=== PATIENT | female | born 1995 | race Caucasian/White ===

== ENCOUNTER 2017-08-01 13:35 | Emergency (ER) | payer BC ==
[2017-08-01 14:32] VITALS: BP 111/57
--- NOTE | 2017-08-01 15:27 | UC ---
Abdominal Pain Female HPI - HPI Summary HPI Summary: patient has ahd a sweek fo some stomach upset and acid reflux at night. she feels better when she eats. did have a migraine on wednesday, but that has resolved. she has no pain right now - History of Current Complaint Chief Complaint: UCAbdominalPain Stated Complaint: ABDOMINAL PAIN Time Seen by Provider: 08/01/17 15:01 Hx Obtained From: Patient Hx Last Menstrual Period: 07/04/17 Onset/Duration: Sudden Onset, Lasting Days Timing: Constant Severity Initially: Mild Severity Currently: None Location: Epigastric Radiates: No Aggravating Factor(s): Nothing Alleviating Factor(s): Other: - eating Associated Signs and Symptoms: Positive: Negative Allergies/Adverse Reactions: Allergies Allergy/AdvReac Type Severity Reaction Status Date / Time No Known Allergies Allergy Verified 08/01/17 14:26 Home Medications: Home Medications Migraine Medication PRN 08/01/17 [History] PMH/Surg Hx/FS Hx/Imm Hx Previously Healthy: Yes - Surgical History Surgical History: None - Family History Known Family History: Negative: Hypertension - Social History Alcohol Use: None Substance Use Type: None Smoking Status (MU): Never Smoked Tobacco - Immunization History Vaccination Up to Date: Yes Review of Systems Constitutional: Negative Skin: Negative Eyes: Negative ENT: Negative Respiratory: Negative Cardiovascular: Negative Gastrointestinal: Abdominal Pain Genitourinary: Negative Motor: Negative Neurovascular: Negative Musculoskeletal: Negative Neurological: Negative Psychological: Negative Is Patient Immunocompromised?: No All Other Systems Reviewed And Are Negative: Yes Physical Exam Triage Information Reviewed: Yes Appearance: Well-Appearing, No Pain Distress, Well-Nourished Vital Signs: Initial Vital Signs Temp 98.4 F 08/01/17 14:28 Pulse 94 08/01/17 14:28 Resp 16 08/01/17 14:28 BP 111/57 08/01/17 14:28 Vital Signs Reviewed: Yes Eye Exam: Normal ENT Exam: Normal Dental Exam: Normal Neck exam: Normal Neck: Positive: Supple, Nontender, No Lymphadenopathy Respiratory Exam: Normal Respiratory: Positive: Chest non-tender, Lungs clear, Normal breath sounds Cardiovascular Exam: Normal Cardiovascular: Positive: RRR, No Murmur, Pulses Normal Abdominal Exam: Normal Abdomen Description: Positive: Nontender, No Organomegaly, Soft, CVA Tenderness (R) - neg, CVA Tenderness (L) - nerg Bowel Sounds: Positive: Hyperactive Musculoskeletal Exam: Normal Neurological Exam: Normal Psychological Exam: Normal Skin Exam: Normal Abd Pain Female Course/Dx - Course Course Of Treatment: hx obtained, exam performed ,meds reviewed, treated for nasuea and educated on acid reflux - Differential Dx/Diagnosis Differential Diagnosis: Appendicitis, Irritable Bowel Syndrome, Urinary Tract Infection Provider Diagnoses: acid reflux, nausea Discharge - Discharge Plan Condition: Stable Disposition: HOME Prescriptions: Ondansetron ODT TAB* [Zofran 4 MG Odt TAB*] 4 mg PO Q8H PRN #12 tab.odt PRN Reason: Nausea Patient Education Materials: Gastroesophageal Reflux Disease (ED) Referrals: Non Staff,Doctor [Primary Care Provider] - Additional Instructions: 1. take the medication prescribed for any nausea or stomach pain. 2. if heartburn occurs taking 2 tums will help witht he temporary heartburn, if the symtpoms persist follow up with your doctor.
== END 2017-08-01 15:31 | disposition home or self-care (01) ==
LOC: UCCORT 13:35
DX: K21.9 Gastro-esophageal reflux disease without esophagitis (principal); R11.0 Nausea
CPT/HCPCS: 99202; G0463

== ENCOUNTER 2017-10-02 08:51 | Emergency (ER) | payer BC ==
[2017-10-02 09:38] VITALS: BP 117/75
--- NOTE | 2017-10-02 09:51 | UC ---
Skin Complaint HPI - HPI Summary HPI Summary: Wart present for over a year, has tried wart bandage with no relief., non painful - History of Current Complaint Chief Complaint: UCSkin Time Seen by Provider: 10/02/17 09:25 Stated Complaint: SKIN CONCERN Hx Obtained From: Patient Hx Last Menstrual Period: 09/12/17 ?: No Onset/Duration: Sudden Onset, Lasting Weeks - iver a year Skin Exposure Onset/Duration: Weeks Ago Timing: Constant Onset Severity: Mild Current Severity: None Pain Intensity: 0 Location: Discrete Aggravating Factor(s): Nothing Alleviating Factor(s): Nothing Associated Signs & Symptoms: Positive: Negative - Allergy/Home Medications Allergies/Adverse Reactions: Allergies Allergy/AdvReac Type Severity Reaction Status Date / Time No Known Allergies Allergy Verified 10/02/17 09:35 Home Medications: Home Medications NK [No Home Medications Reported] 10/02/17 [History Confirmed 10/02/17] Review of Systems Constitutional: Negative Skin: Other - wart Eyes: Negative ENT: Negative Respiratory: Negative Cardiovascular: Negative Gastrointestinal: Negative Genitourinary: Negative Motor: Negative Neurovascular: Negative Musculoskeletal: Negative Neurological: Negative Psychological: Negative Is Patient Immunocompromised?: No All Other Systems Reviewed And Are Negative: Yes PMH/Surg Hx/FS Hx/Imm Hx Previously Healthy: Yes - Surgical History Surgical History: None - Family History Known Family History: Negative: Hypertension - Social History Alcohol Use: Rare Substance Use Type: None Smoking Status (MU): Never Smoked Tobacco - Immunization History Vaccination Up to Date: Yes Physical Exam Triage Information Reviewed: Yes Appearance: Well-Appearing, No Pain Distress, Well-Nourished Vital Signs: Initial Vital Signs Temp 98.6 F 10/02/17 09:30 Pulse 78 10/02/17 09:30 Resp 14 10/02/17 09:30 BP 117/75 10/02/17 09:30 Pulse Ox 100 10/02/17 09:30 Vital Signs Reviewed: Yes Eye Exam: Normal ENT Exam: Normal Dental Exam: Normal Neck exam: Normal Respiratory Exam: Normal Cardiovascular Exam: Normal Abdominal Exam: Normal Bowel Sounds: Positive: Present Musculoskeletal Exam: Normal Neurological Exam: Normal Psychological Exam: Normal Skin: Positive: Other - wart Course/Dx - Course Course Of Treatment: hx obtained, exam performed ,meds reviewed, educated on OTC methods, if it peresits recommend follow up with dermatology - Differential Diagnoses - Skin Complaint Differential Diagnoses: Eczema, Other - wart - Diagnoses Provider Diagnoses: common wart Discharge - Discharge Plan Condition: Stable Disposition: HOME Patient Education Materials: Common Wart (ED) Referrals: Non Staff,Doctor [Primary Care Provider] - Timoteo SALAZAR,Elder Fritz [Physician Product Test Specialist] - Additional Instructions: 1. use the otc treatment, if not affective follow up with dermatology
== END 2017-10-02 10:01 | disposition home or self-care (01) ==
LOC: UCCORT 08:51
DX: L30.9 Dermatitis, unspecified (principal); B07.9 Viral wart, unspecified
CPT/HCPCS: 99211; G0463

== ENCOUNTER 2017-10-07 07:59 | Emergency (ER) | payer BC ==
[2017-10-07 08:52] VITALS: BP 123/82
--- NOTE | 2017-10-07 09:20 | UC ---
Respiratory Complaint HPI - HPI Summary HPI Summary: 22 yo female with sore throat/cough and congestion x 2-3 days feverish chills mild myalgias no n/v/d - History of Current Complaint Chief Complaint: UCRespiratory Stated Complaint: COUGH,SORE THROAT,HEADACHE Time Seen by Provider: 10/07/17 09:13 Hx Obtained From: Patient Hx Last Menstrual Period: 10/05/17 Onset/Duration: Gradual Onset, Lasting Days Timing: Constant Severity Initially: Moderate Severity Currently: Moderate Pain Intensity: 6 Pain Scale Used: 0-10 Numeric Character: Cough: Nonproductive Aggravating Factors: Nothing Alleviating Factors: Nothing Associated Signs And Symptoms: Positive: Fever, Chills, Nasal Congestion, Hoarseness - Allergies/Home Medications Allergies/Adverse Reactions: Allergies Allergy/AdvReac Type Severity Reaction Status Date / Time No Known Allergies Allergy Verified 10/07/17 08:49 PMH/Surg Hx/FS Hx/Imm Hx Previously Healthy: Yes Respiratory History: Asthma - Surgical History Surgical History: None - Family History Known Family History: Negative: Cardiac Disease, Hypertension, Diabetes - Social History Alcohol Use: Rare Substance Use Type: None Smoking Status (MU): Never Smoked Tobacco - Immunization History Vaccination Up to Date: Yes Review of Systems Constitutional: Fever, Chills Skin: Negative Eyes: Negative ENT: Sore Throat, Nasal Discharge, Sinus Congestion Respiratory: Cough Cardiovascular: Negative Gastrointestinal: Negative Genitourinary: Negative Motor: Negative Neurovascular: Negative Musculoskeletal: Arthralgia, Myalgia Neurological: Negative Psychological: Negative Is Patient Immunocompromised?: No All Other Systems Reviewed And Are Negative: Yes Physical Exam Triage Information Reviewed: Yes Appearance: Well-Appearing, No Pain Distress, Well-Nourished Vital Signs: Initial Vital Signs Temp 98.5 F 10/07/17 08:45 Pulse 98 10/07/17 08:45 Resp 16 10/07/17 08:45 BP 123/82 10/07/17 08:45 Pulse Ox 98 10/07/17 08:45 Vital Signs Reviewed: Yes Eyes: Positive: Conjunctiva Clear ENT: Positive: Pharynx normal, Pharyngeal erythema, Nasal congestion, Nasal drainage, Tonsillar swelling, Sinus tenderness. Negative: TMs normal, Uvula midline Neck: Positive: Supple, Nontender Respiratory: Positive: Lungs clear, Normal breath sounds, No respiratory distress, No accessory muscle use Cardiovascular: Positive: RRR, No Murmur Neurological: Positive: Alert Psychological Exam: Normal Skin Exam: Normal UC Diagnostic Evaluation - Laboratory O2 Sat by Pulse Oximetry: 98 - normal/not hypoxic Respiratory Course/Dx - Course Course Of Treatment: INFLUENZA A (+). STREP (-) - Differential Dx/Diagnosis Provider Diagnoses: INFLUENZA Discharge - Discharge Plan Condition: Stable Disposition: HOME Patient Education Materials: Influenza (ED) Forms: *School Release, *Work Release Referrals: No Primary Care Phys,NOPCP [Primary Care Provider] - Additional Instructions: RECHECK IN 4-5 DAYS IF NOT BETTER RECHECK FOR NEW OR WORSENING SYMPTOMS
== END 2017-10-07 09:58 | disposition home or self-care (01) ==
LOC: UCCORT 07:59
DX: J11.1 Influenza due to unidentified influenza virus with other respiratory manifestations (principal)
CPT/HCPCS: 87502; 87651; 99212; G0463

== ENCOUNTER 2018-04-02 08:46 | Emergency (ER) | payer BC ==
[2018-04-02 09:05] VITALS: BP 107/64
--- NOTE | 2018-04-02 09:16 | UC ---
Throat Pain/Nasal Gabe HPI - HPI Summary HPI Summary: sore throat for 3 days with fever - History of Current Complaint Chief Complaint: UCGeneralIllness Stated Complaint: SORE THROAT Time Seen by Provider: 04/02/18 09:07 Hx Obtained From: Patient Hx Last Menstrual Period: 03/18/18 ?: No Onset/Duration: Sudden Onset, Lasting Days - 3 Severity: Moderate Pain Intensity: 7 Pain Scale Used: 0-10 Numeric Cough: None Associated Signs & Symptoms: Positive: Negative - Allergies/Home Medications Allergies/Adverse Reactions: Allergies Allergy/AdvReac Type Severity Reaction Status Date / Time No Known Allergies Allergy Verified 04/02/18 08:56 Home Medications: Home Medications B2/Magnesium Cit,Oxid/Feverfew [Migrelief Caplet] 1 tab PO DAILY PRN 04/02/18 [ History Confirmed 04/02/18] Cholecalciferol (Vitamin D3) [Vitamin D3] 1,000 unit PO DAILY 04/02/18 [History Confirmed 04/02/18] Elderberry Fruit and Flower [Black Elderberry 575 mg Cap] 1 each PO DAILY [History Confirmed 04/02/18] Naproxen TAB* [Naprosyn 250 mg TAB*] 500 mg PO Q8H PRN 04/02/18 [History Confirmed 04/02/18] PMH/Surg Hx/FS Hx/Imm Hx Previously Healthy: Yes - Surgical History Surgical History: None - Family History Known Family History: Negative: Cardiac Disease, Hypertension, Diabetes - Social History Occupation: Employed Full-time, Student Lives: With Family Alcohol Use: Rare Substance Use Type: None Smoking Status (MU): Former Smoker - Immunization History Vaccination Up to Date: Yes Review of Systems Constitutional: Fever, Chills, Fatigue Skin: Negative Eyes: Negative ENT: Sore Throat Respiratory: Negative Cardiovascular: Negative Gastrointestinal: Negative Genitourinary: Negative Motor: Negative Neurovascular: Negative Musculoskeletal: Negative Neurological: Headache Psychological: Negative Is Patient Immunocompromised?: No All Other Systems Reviewed And Are Negative: Yes Physical Exam Triage Information Reviewed: Yes Appearance: Well-Nourished, Ill-Appearing, Pain Distress Vital Signs: Initial Vital Signs Temp 100.8 F 04/02/18 08:55 Pulse 94 04/02/18 08:55 Resp 16 04/02/18 08:55 BP 107/64 04/02/18 08:55 Pulse Ox 100 04/02/18 08:55 Vital Signs Reviewed: Yes Eye Exam: Normal Eyes: Positive: Conjunctiva Clear ENT Exam: Normal ENT: Positive: Normal ENT inspection, Hearing grossly normal, Pharyngeal erythema, TMs normal, Tonsillar swelling, Uvula midline. Negative: Nasal congestion, Tonsillar exudate, Trismus, Muffled voice, Hoarse voice, Dental tenderness, Sinus tenderness Dental Exam: Normal Neck exam: Normal Neck: Positive: Supple, Nontender Respiratory Exam: Normal Respiratory: Positive: Chest non-tender, Lungs clear, Normal breath sounds, No respiratory distress, No accessory muscle use Cardiovascular Exam: Normal Cardiovascular: Positive: RRR, No Murmur, Pulses Normal, Brisk Capillary Refill Abdominal Exam: Normal Abdomen Description: Positive: Nontender, No Organomegaly, Soft Bowel Sounds: Positive: Present Musculoskeletal Exam: Normal Musculoskeletal: Positive: Strength Intact, ROM Intact, No Edema Neurological Exam: Normal Neurological: Positive: Alert, Muscle Tone Normal Psychological Exam: Normal Skin Exam: Normal Diagnostics - Laboratory Diagnostic Studies Completed/Ordered: RST (-) Throat Pain/Nasal Course/Dx - Course Assessment/Plan: lab studies tylenolo, ibuprofen increase fluids, rest follow with pcp prn - Differential Dx/Diagnosis Provider Diagnoses: viral pharyngitis Discharge - Sign-Out/Discharge Documenting (check all that apply): Patient Departure - Discharge Plan Condition: Stable Disposition: HOME Patient Education Materials: Pharyngitis (ED), Viral Syndrome (ED) Referrals: GRAZYNA Mendoza [Medical Doctor] - If Needed Additional Instructions: Follow with your primary care provider as needed - Billing Disposition and Condition Condition: STABLE Disposition: Home Attestation Statement User Type: Provider - I was available for consult. This patient was seen by the CH[facility]. The patient was not presented to, seen by, or examined by me. -Mackenzie
[2018-04-02 14:37] LABS: Hematocrit 36 % (35-47); Hemoglobin 11.9 g/dl (12.0-16.0); Mean Corpuscular HGB Conc 33 g/dl (31-36); Mean Corpuscular Hemoglobin 30 pg (27-31); Mean Corpuscular Volume 90 fL (80-97); Platelet Count 223 10^3/ul (150-450); Red Blood Count 4.01 10^6/ul (4.00-5.40); Red Cell Distribution Width 13 % (10.5-15); White Blood Count 8.5 10^3/ul (3.5-10.8)
[2018-04-02 15:13] LABS: ABS Basophils 0 10^3/ul (0-0.2); ABS Eosinophils 0 10^3/ul (0-0.6); ABS Lymphocytes 0.9 10^3/ul (1.0-4.8); ABS Monocytes 1.2 10^3/ul (0-0.8); ABS Neutrophils 6.3 10^3/ul (1.5-7.7); ABS Nucleated RBC 0 10^3/ul; Eosinophil % 0 % (0-6); Lymphocyte % 10.6 % (25-47); Nucleated Red Blood Cells % 0
--- NOTE | 2018-04-03 08:27 | UC ---
- Progress Note Progress Note: monospot neg CBC reviewed - non concerning - path comment pending no change Mackenzie 04/03/2018 8:26am Discharge - Sign-Out/Discharge Documenting (check all that apply): Patient Departure - Discharge Plan Condition: Stable Disposition: HOME Patient Education Materials: Pharyngitis (ED), Viral Syndrome (ED) Referrals: GRAZYNA Mendoza [Medical Doctor] - If Needed Additional Instructions: Follow with your primary care provider as needed - Billing Disposition and Condition Condition: STABLE Disposition: Home
== END 2018-04-02 10:14 | disposition home or self-care (01) ==
LOC: UCCORT 08:46
DX: J02.8 Acute pharyngitis due to other specified organisms (principal)
CPT/HCPCS: 36415; 85025; 85060; 86308; 86664; 86665; 87651; 99211; G0463

== ENCOUNTER 2018-08-15 08:22 | Emergency (ER) | payer BC ==
[2018-08-15 08:37] VITALS: BP 118/67
--- NOTE | 2018-08-15 09:10 | ED ---
GI/ HPI - HPI Summary HPI Summary: 22 yr old with URI symptoms that started on August 11, and have still persisted. She began to get NVD overnight. She has vomited, and also had diarrhea twice this morning. She presently has no abdominal pain. LMP 3 weeks ago. - History of Current Complaint Chief Complaint: UCGI Time Seen by Provider: 08/15/18 08:42 Stated Complaint: NAUSEA Hx Last Menstrual Period: 07/17/18 Pain Intensity: 2 - Allergy/Home Medications Allergies/Adverse Reactions: Allergies Allergy/AdvReac Type Severity Reaction Status Date / Time lactose Allergy GI Upset Verified 08/15/18 08:34 Home Medications: Home Medications Dm/Pseudoephed/Acetaminophen [Day-Time Multi-Symptom Co] 1 cap PO Q6H 08/15/18 [ History Confirmed 08/15/18] PMH/Surg Hx/FS Hx/Imm Hx Respiratory History: Reports: Hx Asthma - Surgical History Surgery Procedure, Year, and Place: wisdom teeth Infectious Disease History: No Infectious Disease History: Denies: Traveled Outside the [place] in Last 30 Days - Family History Known Family History: Negative: Cardiac Disease, Hypertension, Diabetes - Social History Alcohol Use: Weekly Substance Use Type: Reports: None Smoking Status (MU): Never Smoked Tobacco Review of Systems Constitutional: Negative Positive: Nasal Discharge Positive: Vomiting, Diarrhea, Nausea All Other Systems Reviewed And Are Negative: Yes Physical Exam Triage Information Reviewed: Yes Vital Signs On Initial Exam: Initial Vitals Temp Pulse Resp BP Pulse Ox 98.7 F 112 16 118/67 99 08/15/18 08:32 08/15/18 08:32 08/15/18 08:32 08/15/18 08:32 08/15/18 08:32 Vital Signs Reviewed: Yes Appearance: Positive: Well-Appearing, No Pain Distress Skin: Positive: Warm, Skin Color Reflects Adequate Perfusion Head/Face: Positive: Normal Head/Face Inspection Eyes: Positive: EOMI Neck: Positive: Nontender Respiratory/Lung Sounds: Positive: Clear to Auscultation, Breath Sounds Present Cardiovascular: Positive: RRR. Negative: Murmur Abdomen Description: Positive: Nontender Musculoskeletal: Positive: Strength/ROM Intact Neurological: Positive: Sensory/Motor Intact, Alert, Oriented to Person Place, Time, CN Intact II-III, Normal Gait, Speech Normal Psychiatric: Positive: Normal - Cathi Coma Scale Best Eye Response: 4 - Spontaneous Best Motor Response: 6 - Obeys Commands Best Verbal Response: 5 - Oriented Coma Scale Total: 15 Diagnostics - Vital Signs Vital Signs Temp Pulse Resp BP Pulse Ox 08/15/18 08:32 98.7 F 112 16 118/67 99 - Laboratory Lab Statement: Any lab studies that have been ordered have been reviewed, and results considered in the medical decision making process. GIGU Course/Dx - Course Course Of Treatment: 22 yr old female with NVD, and also URI symptoms. HCG neg. Clear liquids. - Diagnoses Provider Diagnoses: Gastroenteritis Discharge - Sign-Out/Discharge Documenting (check all that apply): Patient Departure All imaging exams completed and their final reports reviewed: No Studies - Discharge Plan Condition: Good Disposition: HOME Patient Education Materials: Gastroenteritis (ED) Referrals: No Primary Care Phys,NOPCP [Primary Care Provider] - [facility] [place]] - 2 Days - Billing Disposition and Condition Condition: GOOD Disposition: Home
== END 2018-08-15 09:20 | disposition home or self-care (01) ==
LOC: UCCORT 08:22
DX: K52.9 Noninfective gastroenteritis and colitis, unspecified (principal)
CPT/HCPCS: 84702; 99211; G0463

== ENCOUNTER 2019-06-26 11:59 | Emergency (ER) | payer BC ==
[2019-06-26 14:18] VITALS: BP 115/75
--- NOTE | 2019-06-26 14:24 | UC ---
Abdominal Pain Female HPI - HPI Summary HPI Summary: Patient is a 23-year-old female presenting with diarrhea 5 days. States she lives in [place] last week for her honeymoon and the diarrhea began on 06/22 the night before she left home. States it began with fever, nausea, diarrhea, and chills. States she saw the nurse in [place] who told her to take Tylenol for her fever and Pepto-Bismol for her upset stomach. Patient states of the symptoms subsided but she still has some loose stools into today. Started with 8 episodes a day of diarrhea but she has only had 2 this today. Denies blood in the stool. Denies mucous in stool. Denies changes in urination. Denies abdominal pain. Denies nausea and vomiting today. Denies fever today. Patient states she is eating and drinking normally. Patient states she "just wants to make sure she is okay." - History of Current Complaint Chief Complaint: UCGI Stated Complaint: UPSET STOMACH/FEVER Hx Obtained From: Patient Hx Last Menstrual Period: 06/25/19 Onset/Duration: Sudden Onset, Lasting Days Severity Initially: Severe Severity Currently: Mild Pain Intensity: 0 Allergies/Adverse Reactions: Allergies Allergy/AdvReac Type Severity Reaction Status Date / Time lactose Allergy GI Upset Verified 06/26/19 14:02 Home Medications: Home Medications Acetaminophen [Acetaminophen Extra Strength] 1,000 mg PO PRN 06/26/19 [History] Bismuth Subsalicylate [Pepto-Bismol Max Strength] 1 liq PO PRN 06/26/19 [History ] Oral Contraceptive 1 tab PO DAILY 06/26/19 [History] PMH/Surg Hx/FS Hx/Imm Hx Previously Healthy: Yes - Surgical History Surgical History: Yes Surgery Procedure, Year, and Place: wisdom teeth - Family History Known Family History: Negative: Cardiac Disease, Hypertension, Diabetes - Social History Alcohol Use: Occasionally Substance Use Type: None Smoking Status (MU): Never Smoked Tobacco - Immunization History Vaccination Up to Date: Yes Review of Systems All Other Systems Reviewed And Are Negative: Yes Constitutional: Positive: Fever, Chills Respiratory: Positive: Negative. Negative: Shortness Of Breath, Cough Cardiovascular: Positive: Negative. Negative: Palpitations, Chest Pain Gastrointestinal: Positive: Diarrhea, Nausea. Negative: Abdominal Pain, Vomiting Genitourinary: Positive: Negative Musculoskeletal: Positive: Negative Neurological: Positive: Negative Physical Exam Triage Information Reviewed: Yes Appearance: Well-Appearing, No Pain Distress, Well-Nourished Vital Signs: Initial Vital Signs Temp 98.9 F 06/26/19 14:05 Pulse 79 06/26/19 14:05 Resp 18 06/26/19 14:05 BP 115/75 06/26/19 14:05 Pulse Ox 99 06/26/19 14:05 Vital Signs Reviewed: Yes Eyes: Positive: Conjunctiva Clear ENT: Positive: Hearing grossly normal Neck: Positive: Supple Respiratory Exam: Normal Respiratory: Positive: Lungs clear, Normal breath sounds, No respiratory distress. Negative: Crackles, Rhonchi, Stridor, Wheezing Cardiovascular Exam: Normal Cardiovascular: Positive: RRR Abdominal Exam: Normal Abdomen Description: Positive: Nontender, Soft. Negative: CVA Tenderness (R), CVA Tenderness (L), Distended, Guarding, McBurney's Point Tenderness Bowel Sounds: Positive: Present, Hypoactive Neurological: Positive: Alert Psychological: Positive: Age Appropriate Behavior Skin Exam: Normal Abd Pain Female Course/Dx - Course Course Of Treatment: Pt VS and PE findings normal. No concern for disease or infection in [place] other than global measles outbreak per CDC. Educated patient on traveler's diarrhea. Instructed her to discontinue Pepto-Bismol use. Instructed her to drink plenty of fluids and increase her fiber intake. Instructed her to continue with bland diet. Instructed her to follow up with physician referral if her symptoms persist. Instructed her to return or go to the ED if symptoms worsen. Patient voiced understanding and agreed with the treatment plan. - Differential Dx/Diagnosis Provider Diagnosis: Travelers' diarrhea Discharge ED - Sign-Out/Discharge Documenting (check all that apply): Patient Departure All imaging exams completed and their final reports reviewed: No Studies - Discharge Plan Condition: Stable Disposition: HOME Patient Education Materials: Traveler's Diarrhea (ED) Referrals: [facility] [place] [facility] [Outside] - If Needed Additional Instructions: As discussed, your symptoms are consistent with traveler's diarrhea. This should resolve on its own within the next couple days. Make sure you drink plenty of fluids and increase your fiber intake. Follow up with the physician referral if your symptoms persist. Go to the ED if you experience fever higher than 102, nausea and vomiting, blood in the stool, or severe abdominal pain. - Billing Disposition and Condition Condition: STABLE Disposition: Home
== END 2019-06-26 14:44 | disposition home or self-care (01) ==
LOC: UCCORT 11:59
DX: R19.7 Diarrhea, unspecified (principal); Z91.011 Allergy to milk products
CPT/HCPCS: 99211; G0463

== ENCOUNTER 2019-10-12 14:47 | Emergency (ER) | payer BC ==
[2019-10-12 15:33] VITALS: BP 98/68
--- NOTE | 2019-10-12 15:40 | UC ---
Skin Complaint HPI - HPI Summary HPI Summary: 24-year-old college female who started experiencing left upper eyelid redness and swelling yesterday which has progressively worsened today. She denies any visual changes. She denies any fever or chills. - History of Current Complaint Chief Complaint: UCEye Time Seen by Provider: 10/12/19 15:28 Stated Complaint: LEFT EYE COMPLAINT Hx Obtained From: Patient Hx Last Menstrual Period: 09/30/19 ?: No Onset/Duration: Gradual Onset Skin Exposure Onset/Duration: Days Ago Timing: Constant Onset Severity: Mild Current Severity: Moderate Pain Intensity: 0 Location: Other - Left upper eyelid Character: Pain, Redness Aggravating Factor(s): Touch Alleviating Factor(s): Nothing Associated Signs & Symptoms: Positive: Tenderness - Allergy/Home Medications Allergies/Adverse Reactions: Allergies Allergy/AdvReac Type Severity Reaction Status Date / Time lactose Allergy GI Upset Verified 10/12/19 15:29 PMH/Surg Hx/FS Hx/Imm Hx Previously Healthy: Yes - Surgical History Surgical History: Yes Surgery Procedure, Year, and Place: wisdom teeth - Family History Known Family History: Negative: Cardiac Disease, Hypertension, Diabetes - Social History Alcohol Use: Weekly Substance Use Type: None Smoking Status (MU): Never Smoked Tobacco - Immunization History Vaccination Up to Date: Yes Review of Systems All Other Systems Reviewed And Are Negative: Yes Skin: Positive: Other - Left upper eyelid was more swollen and red this morning. Eyes: Positive: Drainage - Patient states she had some yellow crustiness around her eyelashes this morning. No change in her vision. Is Patient Immunocompromised?: No Physical Exam Triage Information Reviewed: Yes Appearance: Well-Appearing, No Pain Distress, Well-Nourished Vital Signs: Initial Vital Signs Temp 98.6 F 10/12/19 15:30 Pulse 77 10/12/19 15:30 Resp 14 10/12/19 15:30 BP 98/68 10/12/19 15:30 Pulse Ox 99 10/12/19 15:30 Vital Signs Reviewed: Yes Eyes: Positive: Conjunctiva Clear - PERRLA, EOMI ENT: Positive: Hearing grossly normal, Pharynx normal, TMs normal, Uvula midline Neck: Positive: Supple, Nontender, No Lymphadenopathy Respiratory: Positive: Lungs clear, Normal breath sounds, No respiratory distress, No accessory muscle use Cardiovascular: Positive: RRR, No Murmur, Pulses Normal, Brisk Capillary Refill Musculoskeletal Exam: Normal Neurological Exam: Normal Psychological Exam: Normal Skin: Positive: Other - Left upper eyelid tender on palpation with erythema and mild swelling. With eversion of the eyelids I am unable to visualize any stye or ulceration. Course/Dx - Course Course Of Treatment: The patient is comfortable here. We did discuss what symptoms would take her to the emergency room that being increased facial swelling, fever or chills or unable keep the medicine down. Definite follow up at the [facility] on Wednesday if no improvement. Patient is agreeable to this plan of action. - Diagnoses Provider Diagnosis: Cellulitis of left upper eyelid Discharge ED - Sign-Out/Discharge Documenting (check all that apply): Patient Departure All imaging exams completed and their final reports reviewed: No Studies - Discharge Plan Condition: Fair Disposition: HOME Prescriptions: Amoxicillin/Clavulanate TAB* [Augmentin TAB 875*] 875 mg PO BID 10 Days #20 tab Patient Education Materials: Cellulitis (DC) Referrals: No Primary Care Phys,NOPCP [Primary Care Provider] - LIU SWENSON [Z.BUSINESS, APPLICATION, OTHER] - Additional Instructions: Apply warm moist compresses to the eyelid 4-6 times a day for 20 minutes each time. Take the Augmentin with food. Definite follow up at the [facility] on Wednesday if no improvement. Coming into the weekend if you develop worsening symptoms, facial swelling, fever or chills or vomiting your to go to the emergency room. - Billing Disposition and Condition Condition: FAIR Disposition: Home
== END 2019-10-12 15:54 | disposition home or self-care (01) ==
LOC: UCCORT 14:47
DX: H00.034 Abscess of left upper eyelid (principal); Z91.011 Allergy to milk products
CPT/HCPCS: 99212; G0463

== ENCOUNTER 2019-11-09 11:24 | Emergency (ER) | payer BC ==
--- OUTSIDE RECORDS SUMMARY | 2019-11-09 13:28 | XMS REPORT | Continuity of Care Document ---
:1995 External Reference #:[id number] Author Name Gertrude Swain PA Address [address] [place] [address] [place] [address] Problems Description No Information Available Social History Type Date Description Comments Sex Unknown Tobacco Use Start: Unknown Patient has never smoked Allergies, Adverse Reactions, Alerts Active Allergies Reaction Severity Comments Date Milk-Related Compounds 04/10/2014 Medications Active Medications SIG Qnty Indications Ordering Provider Date Doxycycline Hyclate 1 tablet by 28tabs H00.14 Rambo Hendrickson DO 2019 mouth twice 100mg Tablets daily for 14 days Kenna Fe 09/[address] 08/30/2019 1-20mg-mcg Tablets Immunizations CPT Code Status Date Vaccine Lot # [id number] Given 11/24/2017 Tdap (Adacel) Ages 7 And Above Only [id number] Given 06/11/2014 HPV Vaccine (Gardasil) 3 Dose Schedule 90054 Given 04/10/2014 Menactra/Menveo Meningococcal Vaccine 51478 Given 04/10/2014 HPV Vaccine (Gardasil) 3 Dose Schedule [id number] Refused 10/30/2019 Afluria Or Fluvirin Flu Vac Intramuscular Vital Signs Date Vital Result Comment 10/30/2019 8:01am Body Temperature 97.6 F Weight 156.00 lb Heart Rate 80 /min BP Systolic 112 mmHg BP Diastolic 76 mmHg Respiratory Rate 16 /min Height 66.25 inches 5'6.25" BMI (Body Mass Index) 25.0 kg/m2 04/07/2016 11:35am Weight 146.00 lb Heart Rate 68 /min BP Systolic 122 mmHg BP Diastolic 72 mmHg Respiratory Rate 18 /min Height 66 inches 5'6" BMI (Body Mass Index) 23.6 kg/m2 Results Description No Information Available Procedures Description No Information Available Medical Devices Description No Information Available Encounters Description No Information Available Assessments Date Code Description Provider 10/30/2019 K60.2 Anal fissure, unspecified Gertrude Swain PA 10/30/2019 H00.14 Chalazion LEFT upper eyelid Gertrude Swain PA 10/30/2019 Z68.25 Body mass index (BMI) 25.0-25.9, adult Gertrude Swain PA Plan of Treatment 10/30/2019 - Gertrude Swain, PAK60.2 Anal fissure, unspecifiedComments:Likely cause of rectal pain and bleedingAdvised the cause is usually over stretching of anal sphincter that leads to a tiny tearAdvised the best treatment approach is to keep stools soft and not large,use stool softeners if neededIf has difficulty healing, call for reevaluation. If this does not resolve within 3-4 weeks, call for gi referralFollow up:PrnH00.14 Chalazion LEFT upper eyelidNew Medication:Doxycycline Hyclate 100 mg - 1 tablet by mouth twice daily for 14 daysComments:Will treat with doxyCan continue warm compressesIf no improvement suggest ophtho evalZ68.25 Body mass index (BMI) 25.0-25.9, adult Functional Status Description No Information Available Mental Status Description No Information Available Referrals Description No Information Available
[2019-11-09 13:54] VITALS: BP 115/71
--- NOTE | 2019-11-09 14:12 | UC ---
FLU HPI - HPI Summary HPI Summary: 4 DAY HISTORY OF SORE THROAT, NASAL CONGESTION, WITH INCREASING HEADACHE. No hx of asthma or lung disease. Concerned as she helps her grandmother out a lot. - History of Current Complaint Chief Complaint: UCRespiratory Stated Complaint: SORE THROAT CONGESTION Time Seen by Provider: 11/09/19 14:05 Hx Obtained From: Patient Hx Last Menstrual Period: 10/23/19 Onset/Duration: Gradual Onset, Lasting Days - 4 Severity Currently: Mild Severity Initially: Mild Pain Intensity: 0 Associated Signs & Symptoms: Positive: Cough - not much coughing, Sore Throat, Headache. Negative: Fever - Risk Factors Influenza Risk Factors: Negative - Allergy/Home Medications Allergies/Adverse Reactions: Allergies Allergy/AdvReac Type Severity Reaction Status Date / Time lactose Allergy Mild GI Upset Verified 11/09/19 13:45 Home Medications: Home Medications Oral Contraceptive 1 tab PO DAILY 06/26/19 [History Confirmed 11/09/19] Amoxicillin PO (*) [Amoxicillin 875 MG (*)] 875 mg PO BID #14 tab 11/09/19 [Rx] PMH/Surg Hx/FS Hx/Imm Hx Previously Healthy: Yes - Surgical History Surgical History: Yes Surgery Procedure, Year, and Place: wisdom teeth - Family History Known Family History: Positive: Other - grandmother has agarophobia Negative: Cardiac Disease, Hypertension, Diabetes - Social History Occupation: Employed Full-time Lives: With Family Alcohol Use: Occasionally Substance Use Type: None Smoking Status (MU): Never Smoked Tobacco - Immunization History Vaccination Up to Date: Yes Review of Systems All Other Systems Reviewed And Are Negative: Yes Constitutional: Positive: Fatigue Skin: Positive: Negative Eyes: Positive: Negative ENT: Positive: Sore Throat, Nasal Discharge, Sinus Congestion, Sinus Pain/ Tenderness Respiratory: Positive: Cough. Negative: Shortness Of Breath Cardiovascular: Negative: Palpitations, Chest Pain Gastrointestinal: Positive: Negative Genitourinary: Positive: Negative Motor: Positive: Negative Neurovascular: Positive: Negative Musculoskeletal: Positive: Negative Neurological/Mental Status: Positive: Headache Psychological: Positive: Negative Is Patient Immunocompromised?: No Physical Exam Triage Information Reviewed: Yes Appearance: No Pain Distress, Ill-Appearing - congested, looks mildly unwell Vital Signs: Initial Vital Signs Temp 99 F 11/09/19 13:46 Pulse 79 11/09/19 13:46 Resp 17 11/09/19 13:46 BP 115/71 11/09/19 13:46 Pulse Ox 99 11/09/19 13:46 ENT: Positive: Pharyngeal erythema. Negative: Tonsillar swelling, Tonsillar exudate Neck: Positive: Supple, Nontender, No Lymphadenopathy Respiratory: Positive: Lungs clear, Normal breath sounds, No respiratory distress Cardiovascular: Positive: RRR, No Murmur Musculoskeletal Exam: Normal Neurological Exam: Normal Psychological Exam: Normal Skin Exam: Normal Diagnostics - Laboratory Lab Results: rapid flu negative. Flu Course/Dx - Course Course Of Treatment: amoxicillin for treatment of sinusitis. - Differential Dx/Diagnosis Differential Diagnosis/HQI/PQRI: Influenza, Upper Respiratory Infection, Other - sinusitis Provider Diagnosis: Acute sinusitis Discharge ED - Sign-Out/Discharge Documenting (check all that apply): Patient Departure All imaging exams completed and their final reports reviewed: No Studies - Discharge Plan Condition: Stable Disposition: HOME Prescriptions: Amoxicillin PO (*) [Amoxicillin 875 MG (*)] 875 mg PO BID #14 tab Patient Education Materials: Sinusitis (ED) Referrals: No Primary Care Phys,NOPCP [Primary Care Provider] - Additional Instructions: Your flu test is negative. Please take the full course of antibiotic treatment. Follow up if you develop worsening cough or shortness of breath. - Billing Disposition and Condition Condition: STABLE Disposition: Home
[2019-11-09 14:14] LABS: Influenza A Molecular Negative (Negative); Influenza B Molecular Negative (Negative)
== END 2019-11-09 14:36 | disposition home or self-care (01) ==
LOC: UCCORT 11:24
DX: J01.90 Acute sinusitis, unspecified (principal); R53.83 Other fatigue; Z91.011 Allergy to milk products
CPT/HCPCS: 99212; G0463

== ENCOUNTER 2021-08-26 11:15 | Inpatient (IN) ==
[2021-08-26] MEDS ORDERED: CASIRIVIMAB/IMDEVIMAB SUBCUT 600-600MG/10 ML SUBCUT ONE (12:30)
[2021-08-26] MEDS ORDERED: SOTROVIMAB 500 MG VIAL 500 MG in NS 0.9% 100 ml BAG 100 ML IV ONE (12:50)
[2021-08-26] MEDS ORDERED: Lactated Ringers 1000 ml BAG 1,000 ML IV ONE (13:16)
[2021-08-26] MEDS ORDERED: NS 0.9% 50 ML 50 ML IV ONE (13:22)
[2021-08-26 14:21] LABS: ABS Lymphocytes 1.5 10^3/ul (1.0-4.8); ABS Monocytes 1.1 10^3/ul (0-0.8); ABS Neutrophils 4.2 10^3/ul (1.5-7.7); Eosinophil % 0.5 %; Hematocrit 34 % (35-47); Hemoglobin 11.4 g/dL (12.0-16.0); Lymphocyte % 21.4 %; Mean Corpuscular HGB Conc 34 g/dL (31-36); Mean Corpuscular Hemoglobin 30 pg (27-31); Mean Corpuscular Volume 90 fL (80-97); Mean Platelet Volume 8.6 fL (7.4-10.4); Platelet Count 249 10^3/uL (150-450); Red Blood Count 3.76 10^6 /uL (3.70-4.87); Red Cell Distribution Width 13 % (10-15); White Blood Count 6.9 10^3/uL (3.5-10.8)
[2021-08-26 14:49] LABS: Urine Benzodiazepine Screen None Detected (None Detect); Urine Cannabinoids Screen None Detected (None Detect); Urine Opiates Screen None Detected (None Detect)
[2021-08-26] MEDS: Oxytocin in LR 20 UNITS/1,000 ML BAG IVPB SCH (16:31)
[2021-08-26] MEDS ORDERED: Lactated Ringers 1000 ml BAG 1,000 ML IV SCH (17:00)
[2021-08-27] MEDS ORDERED: OBEPIDURAL 250 ML EPIDURAL ONE (03:09)
[2021-08-27] MEDS ORDERED: Lactated Ringers 1000 ml BAG 1,000 ML IV ONE (04:15)
[2021-08-27] MEDS ORDERED: Lactated Ringers 1000 ml BAG 500 ML IV PRN ×2 (04:15)
[2021-08-27] MEDS ORDERED: Sodium Citrate/Citric Acid LIQ 15 ML UDC PO PRN (04:15)
[2021-08-27] MEDS ORDERED: Phenylephrine 40 mcg/mL 10mL (400mcg) SYRINGE IV PUSH PRN ×2 (04:15)
[2021-08-27] MEDS ORDERED: Lactated Ringers 1000 ml BAG 1,000 ML IV SCH ×3 (05:00→17:00)
[2021-08-27] MEDS: Oxytocin in LR 20 UNITS/1,000 ML BAG IVPB SCH (05:05)
[2021-08-27] MEDS ORDERED: NS 0.9% IVPB SCH ×2 (14:00)
[2021-08-27] MEDS ORDERED: GENTAMICIN ADULT IVPB SCH ×2 (14:00)
[2021-08-27] MEDS: Ampicillin ADVAN 2 GM in NS 0.9% 100 ml BAG 100 ML IVPB SCH ×2 (14:30→23:23)
[2021-08-27] MEDS ORDERED: Measles, Mumps,Rubella VACC 0.5 ML/VIAL SUBCUT ONE (16:15)
[2021-08-27] MEDS ORDERED: Glycerin ADULT 2.4 gm SUPP PR PRN (16:15)
[2021-08-27] MEDS ORDERED: Lidocaine 1% VIAL 10 MG/ML VIAL ONE (16:20)
[2021-08-27] MEDS ORDERED: Oxytocin in LR 20 UNITS/1,000 ML BAG IVPB ONE (16:21)
[2021-08-27] MEDS ORDERED: Oxytocin in LR 20 UNITS/1,000 ML BAG IVPB SCH (17:00)
[2021-08-28 06:38] LABS: ABS Monocytes 0.9 10^3/ul (0-0.8); ABS Neutrophils 13.4 10^3/ul (1.5-7.7); Eosinophil % 0.2 %; Hematocrit 29 % (35-47); Hemoglobin 9.8 g/dL (12.0-16.0); Lymphocyte % 12.1 %; Mean Corpuscular HGB Conc 34 g/dL (31-36); Mean Corpuscular Hemoglobin 31 pg (27-31); Mean Corpuscular Volume 91 fL (80-97); Mean Platelet Volume 7.9 fL (7.4-10.4); Platelet Count 232 10^3/uL (150-450); Red Blood Count 3.22 10^6 /uL (3.70-4.87); Red Cell Distribution Width 13 % (10-15); White Blood Count 16.2 10^3/uL (3.5-10.8)
[2021-08-28] MEDS: Dibucaine 1% OINT 28.35 GM TUBE PR PRN ×2 (09:40→20:24)
[2021-08-28] MEDS ORDERED: Benzocaine/Menthol LOZ PO PRN (20:16)
[2021-08-28] MEDS: Witch Hazel PAD JAR TOPICAL PRN (20:24)
[2021-08-29] MEDS: OBEPIDURAL 250 ML EPIDURAL SCH ×2 (07:23→07:25)
[2021-08-29] MEDS: Ampicillin ADVAN 2 GM in NS 0.9% 100 ml BAG 100 ML IVPB SCH (07:25)
[2021-08-29 08:58] VITALS: BP 118/74
[2021-08-29] MEDS ORDERED: Measles, Mumps,Rubella VACC 0.5 ML/VIAL ONE (09:41)
[2021-08-29] MEDS: Dibucaine 1% OINT 28.35 GM TUBE PR PRN (10:02)
[2021-08-29] MEDS: Witch Hazel PAD JAR TOPICAL PRN (10:02)
[2021-08-29] MEDS ORDERED: Flu vaccine *QUAD* 2021-22* 0.5 ML SYRINGE IM ONE (14:27)
== END 2021-08-29 15:49 | disposition home or self-care (01) | DRG 768 ==
LOC: MCHOBOUT 11:15 → MCHOB 13:53
PROVIDERS: ADMIT Midwife; ATTEND Midwife